=== PATIENT | male | born 1965 | race Caucasian/White ===

== ENCOUNTER 2024-05-24 07:31 | Outpatient (CLI) | payer OTHER | END 2024-05-24 07:32 | disposition home or self-care (01) | LOC: SCSMRI 07:31 | PROVIDERS: ATTEND Orthopaedic Surgery | DX: R22.32 Localized swelling, mass and lump, left upper limb (principal) ==

== ENCOUNTER 2024-06-12 08:32 | Outpatient (CLI) | payer OTHER ==
[2024-06-12 10:45] LABS: #Basophils 0.03 10x3/uL (0.0-0.2); %Basophils 0.3 % (0.0-1.0); %Lymphocytes 22.4 % (21.0-51.0); %Monocytes 10.1 % (0.0-10.0); %Neutrophils 65.9 % (42.0-75.0); Hematocrit 44.3 % (42.0-52.0); Mean Corpuscular HGB CONC 33.9 g/dL (32.0-36.0); Mean Corpuscular Hemoglobin 30.9 pg (27.0-31.0); Mean Corpuscular Volume 91.2 fL (78.0-98.0); Mean Platelet Volume 10.7 fL (7.4-10.4); Platelet Count 248 10x3/uL (130-400); RBC Distribution Width 13.2 % (11.5-14.5); Red Blood Cell (RBC) Count 4.86 mill/uL (4.70-6.10)
[2024-06-12 11:04] LABS: Anion Gap 11 mmol/L (10-20); BUN (Urea Nitrogen) 12 mg/dL (8.4-25.7); Calc. Creatinine Clearance 0 mL/min (70-130); Calcium 8.9 mg/dL (7.8-10.44); Carbon Dioxide 25 mmol/L (22-29); Chloride 108 mmol/L (98-107); Estimated GFR 100; Glucose 73 mg/dL (70-105); Potassium 3.8 mmol/L (3.5-5.1); Sodium 140 mmol/L (136-145)
== END 2024-06-12 08:33 | disposition home or self-care (01) ==
LOC: LABBT 08:32
PROVIDERS: ATTEND Orthopaedic Surgery
DX: Z01.818 Encounter for other preprocedural examination (principal); R22.32 Localized swelling, mass and lump, left upper limb
CPT/HCPCS: 71046; 80048; 85025; 93005; 93010

== ENCOUNTER 2024-06-14 06:10 | Day surgery (SDC) | payer OTHER ==
[2024-06-12 08:50] VITALS: BMI 23.0
[2024-06-14] MEDS ORDERED: Bacitracin Zinc Ointment 30 gm TUBE ONE (07:03)
[2024-06-14] MEDS ORDERED: Lidocaine 1% (PF) 30 ML VIAL ONE (07:04)
[2024-06-14] MEDS ORDERED: CEFAZOLIN 2 GM VIAL ONE (07:08)
[2024-06-14] MEDS ORDERED: PROPOFOL 20 ML ONE (07:24)
[2024-06-14] MEDS ORDERED: Midazolam HCl 2 mg/2 ml Vial ONE (07:24)
[2024-06-14] MEDS ORDERED: fentaNYL PF 100 MCG/2 ML SYRINGE ONE (07:24)
[2024-06-14] MEDS ORDERED: Lidocaine 1% PF 5 ML VIAL ONE (07:30)
[2024-06-14] MEDS ORDERED: Ondansetron PF 4 MG/2 ML Vial ONE (07:30)
[2024-06-14] MEDS ORDERED: Dexamethasone 20 MG/5 ML VIAL ONE (07:30)
[2024-06-14] MEDS ORDERED: SUCCINYLCHOLINE/SOD CL,ISO/PF 200 MG/10 ML SYRINGE FS ONE (07:43)
[2024-06-14] MEDS ORDERED: Ketamine In 0.9 % NaCl 50 MG/5 ML SYRINGE ONE (07:59)
[2024-06-14] MEDS ORDERED: Glycopyrrolate 0.2 MG/ML 5 ML SYRINGE ONE (08:00)
[2024-06-14] MEDS ORDERED: PHENYLEPHRINE-NS 100 MCG/ML 10 ML SYRINGE ONE (08:00)
== END 2024-06-14 09:58 | disposition home or self-care (01) ==
LOC: SDC 06:10
PROVIDERS: ATTEND Orthopaedic Surgery
PROC: 0JBK0ZZ Excision of Left Hand Subcutaneous Tissue and Fascia, Open Approach (ICD-10-PCS; principal; 2024-06-14)
DX: L72.0 Epidermal cyst (principal); F17.200 Nicotine dependence, unspecified, uncomplicated
CPT/HCPCS: 88304; 88305; A6223; J1100; J2250; J2405; J2704; J3490